=== PATIENT | male | born 1995 | race Caucasian/White ===

== ENCOUNTER 2022-12-13 14:52 | Emergency (ER) | payer BC ==
[~2022-12-13] VITALS: Ht 177.8 cm; Wt 108.9 kg
[~2022-12-13 14:52] MED LIST: SERTRALINE
[2022-12-13 15:30] VITALS: BP 145/87; PULSE 82; RESP 16; TEMP 98.5; O2SAT 99
[2022-12-13] MEDS ORDERED: LIDOCAINE HCL 1% 20ML VIAL (Pyxis) INJ INFIL ONE (19:30)
[2022-12-13] MEDS ORDERED: IBUP-2028 MT (21:25)
== END 2022-12-13 23:01 | disposition home or self-care (01) ==
LOC: ER 14:52
DX: S63.235A Subluxation of proximal interphalangeal joint of left ring finger, initial encounter (principal); F32.A Depression, unspecified; F41.9 Anxiety disorder, unspecified; X58.XXXA Exposure to other specified factors, initial encounter; Y93.89 Activity, other specified; Y92.89 Other specified places as the place of occurrence of the external cause; Y99.8 Other external cause status
CPT/HCPCS: 99285; 26770; 73130; 99152; J3490

== ENCOUNTER 2023-06-09 03:04 | Emergency (ER) | payer BC, MEDICAID ==
[~2023-06-09] VITALS: Ht 170.2 cm; Wt 99.5 kg
[~2023-06-09 03:04] MED LIST changes: +IBUP-2028 MT
[2023-06-09 03:20] VITALS: BP 119/59; TEMP 98.1; O2SAT 98
[2023-06-09] MEDS ORDERED: CARB-274 EACH EAR (03:34)
[2023-06-09 03:41] VITALS: PULSE 70; RESP 16
== END 2023-06-09 07:05 | disposition home or self-care (01) ==
LOC: ER 04:55
DX: T16.2XXA Foreign body in left ear, initial encounter (principal); W44.9XXA Unspecified foreign body entering into or through a natural orifice, initial encounter; Y93.89 Activity, other specified; Y92.89 Other specified places as the place of occurrence of the external cause; Y99.8 Other external cause status
CPT/HCPCS: 69200; 99284

== ENCOUNTER 2023-11-06 10:11 | Emergency (ER) | payer BC, MEDICAID ==
[~2023-11-06] VITALS: Ht 180.3 cm; Wt 90.0 kg
[~2023-11-06 10:11] MED LIST changes: +CARB-274 EACH EAR
[2023-11-06 10:20] VITALS: O2SAT 100
[2023-11-06 13:22] VITALS: TEMP 98.4
[2023-11-06 13:23] VITALS: BP 125/70; PULSE 83; RESP 20
[2023-11-06] MEDS: IBUPROFEN 400MG TABLET PO ONE (13:23)
== END 2023-11-06 13:28 | disposition home or self-care (01) ==
LOC: ER 10:11
DX: S93.401A Sprain of unspecified ligament of right ankle, initial encounter (principal); Z98.890 Other specified postprocedural states; X58.XXXA Exposure to other specified factors, initial encounter; Y93.89 Activity, other specified; Y92.89 Other specified places as the place of occurrence of the external cause; Y99.8 Other external cause status
CPT/HCPCS: 73610; 73630; 29515; 99284; Z7610

== ENCOUNTER 2024-10-30 14:24 | Emergency (ER) | payer BC ==
[~2024-10-30] VITALS: Ht 177.8 cm; Wt 97.0 kg
[2024-10-30 14:42] VITALS: O2SAT 98
[2024-10-30] MEDS: LIDOCAINE HCL 1% 20ML VIAL INL ONE (16:00)
[2024-10-30] MEDS: KETOROLAC 15MG/ML VIAL IM ONE (16:38)
[2024-10-30] MEDS: TETANUS, DIPHTHERIA, PERTUSSIS VAC/PF 0.5ML (>10YR OLD) IM ONE (16:39)
[2024-10-30] MEDS ORDERED: IBUP-2029 MT (19:24)
[2024-10-30] MEDS ORDERED: BO1 TP (19:24)
[2024-10-30] MEDS ORDERED: HYDR-4001 MT (19:24)
[2024-10-30 20:00] VITALS: BP 122/76; PULSE 62; RESP 19; TEMP 37; O2SAT 98
== END 2024-10-30 20:05 | disposition home or self-care (01) ==
LOC: ER 14:24
DX: S52.134A Nondisplaced fracture of neck of right radius, initial encounter for closed fracture (principal); S81.011A Laceration without foreign body, right knee, initial encounter; Z79.899 Other long term (current) drug therapy; W22.09XA Striking against other stationary object, initial encounter; Y93.89 Activity, other specified; Y92.89 Other specified places as the place of occurrence of the external cause; Y99.8 Other external cause status
CPT/HCPCS: 73080; 73090; 90715; 12001; 90471; 96372; 99284; J1885; J2003; A6449; Z7610; A4565

== ENCOUNTER 2024-11-02 16:59 | Emergency (ER) | payer BC ==
[~2024-11-02] VITALS: Ht 177.8 cm; Wt 99.0 kg
[~2024-11-02 16:59] MED LIST changes: +BO1 TP; +IBUP-2029 MT
[2024-11-02 17:07] VITALS: O2SAT 96
[2024-11-02 19:21] VITALS: BP 131/96; PULSE 74; RESP 16; TEMP 36.7; O2SAT 100
== END 2024-11-02 19:22 | disposition home or self-care (01) ==
LOC: ER 16:59
DX: S52.131A Displaced fracture of neck of right radius, initial encounter for closed fracture (principal); Z79.899 Other long term (current) drug therapy; X58.XXXA Exposure to other specified factors, initial encounter; Y93.89 Activity, other specified; Y92.89 Other specified places as the place of occurrence of the external cause; Y99.8 Other external cause status
CPT/HCPCS: 99283; 29105; A6449